=== PATIENT | female | born 1975 | race Caucasian/White ===

== ENCOUNTER 2019-09-26 07:16 | Day surgery (SDC) | payer MEDICAID ==
[~2019-09-26] VITALS: Ht 170.2 cm; Wt 53.2 kg
--- NOTE | ~2019-09-26 | OP ---
PATIENT NAME: DAMION BHAKTA MEDICAL RECORD: [id number] :75 LOCATION:D.OPS ADMISSION DATE: SURGEON: RAMAKRISHNA GARVIN DO DATE OF OPERATION: 09/26/2019 PROCEDURE: Colonoscopy with polypectomy. INDICATIONS FOR PROCEDURE: Change in bowels, generalized abdominal tenderness, nausea, vomiting. SCOPE: Olympus video pediatric colonoscope. MEDICATIONS: Propofol 270 mg IV per anesthesia. WITHDRAWAL TIME: 10 minutes. ESTIMATED BLOOD LOSS: Minimal. COMPLICATIONS: None. FINDINGS: Informed consent was given. The patient was made comfortable with the above medication. After reaching an adequate level of sedation by slow IV push, the patient was placed on her left side. A digital rectal examination was performed and revealed some prolapsing hemorrhoids. The endoscope was advanced under direct visualization through the rectum to the cecum, confirmed by the presence of the appendiceal orifice and ileocecal valve. The endoscope was slowly withdrawn and mucosa was carefully examined. The prep quality was good. There was a single benign-appearing sessile polyp located in the descending colon which was removed using hot forceps. Retroflexion was performed in the rectum with visualization of grade II internal hemorrhoids without active bleeding. The endoscope was withdrawn from the patient. The patient tolerated the procedure well and there were no complications. There were no other findings during the examination. IMPRESSION: 1. A single benign-appearing descending polyp removed using hot forceps. 2. Grade II internal hemorrhoids without bleeding. PLAN AND RECOMMENDATIONS: 1. Discharge home when recovery parameters are met. 2. Follow up biopsy specimen results. 3. High fiber diet. 4. Continue current medications. 5. Referral to general surgery regarding the symptomatic hemorrhoids. 6. Recall colonoscopy in 5 years. TRANSINT:[id number] Voice Confirmation ID: [id number] DOCUMENT ID: [id number] OPERATIVE REPORT [id number] DAMION BHAKTA RAMAKRISHNA GARVIN DO CC: [id number] DICTATION DATE: 09/26/19 0949 [facility]ER: 09/26/19 1326 [facility] 09/26/19 [place] [id number]
[~2019-09-26 07:16] MED LIST: ACETAMINOPHEN325 MG PO
[2019-09-26 07:34] LABS: BASOPHILS 0.7 % (0-2); HEMATOCRIT 41.3 % (36.0-48.0); HEMOGLOBIN 13.5 g/dL (12-16); IMMATURE GRANULOCYTES 0.2 % (0-5); LYMPHOCYTES 22.8 % (15-50); MCH 29.9 pg (26.0-34.0); MCHC 32.7 g/dL (31.0-37.0); MCV 91.6 fL (80.0-100.0); MEAN PLATELET VOLUME 9.6 fL (7.4-10.4); NEUTROPHILS 65.3 % (40-80); PLATELET COUNT 177 10x3/uL (130-400); RBC 4.51 10x6/uL (4.00-5.40); RDW 13.6 % (11.5-14.5); WBC 4.3 10x3/uL (4.8-10.8)
[2019-09-26 07:44] LABS: ANION GAP 16.1 mmol/L (8-16); CALCIUM 9.6 mg/dL (8.5-10.1); CARBON DIOXIDE 25.6 mmol/L (21.0-32.0); POTASSIUM - SERUM 3.7 mmol/L (3.5-5.1)
[2019-09-26 08:16] VITALS: BP 102/56; Ht 170.2 cm; Wt 53.2 kg
[2019-09-26] MEDS ORDERED: OMEPRAZOLE40 MG PO (08:25)
[2019-09-26] MEDS ORDERED: LIPITOR40 MG PO (08:26)
--- NOTE | 2019-09-26 10:59 | NUR ---
1050 ALL DC INSTRUCTIONS AND FOLLOW UPS GIVEN. VOICES UNDERSTANDING. TAKEN OUT VIA W/C TO . ADVISED TO CALL OR COME BACK IF ANY PROBLEMS.
== END 2019-09-26 10:50 | disposition home or self-care (01) ==
LOC: D.OPS 07:16
PROVIDERS: Anesthesiology; ATTEND Internal Medicine Gastroenterology
DX: R19.4 Change in bowel habit (principal); R10.9 Unspecified abdominal pain; R11.2 Nausea with vomiting, unspecified; D12.6 Benign neoplasm of colon, unspecified; K64.1 Second degree hemorrhoids